=== PATIENT | female | born 1955 | race Caucasian/White ===

== ENCOUNTER → 2018-07-22 | Outpatient (CLI) | payer OTHER, MEDICARE ==
[~2018-07-22] MED LIST: FUROSEMIDE 10 MG/ML 2 ML VIAL IV ONE
--- NOTE | 2018-07-25 11:46 | NM ---
EXAMINATION TYPE: NM lasix renogram DATE OF EXAM: 07/22/2018 COMPARISON: Correlation CT 02/29/2016 HISTORY: 63-year-old female hydronephrosis with UPJ obstruction. Technique: Following administration of 9.97 mCi Tc 99m MAG3 with 20mg Lasix. Immediate images post in jection FINDINGS: Left: 47.7 %. Right: 52.3 %. Max renal flow left: 29 minutes. Max renal flow right: 52.3 minutes. Lasix was administered at 9 minutes. Max renal flow is encountered after Lasix administration. Some faint excretion is seen from the renal collecting systems. For the entire 30 minutes, the kidney s continue to show increasing uptake. Unable to define the collecting systems adequately with a region of interest due to the faint tracer cannulation. T 1/2 left: Cannot be calculated T 1/2 right: Cannot be calculated IMPRESSION: 1. Split function of the kidneys is approximately equivalent. 2. Max renal flow is encountered at or beyond 30 minutes. There is only faint accumulation in the col lecting systems. Findings suggest either dehydration, chronic kidney disease, or obstruction.
== END | disposition home or self-care (01) ==
LOC: RADNMMAIN 15:15
PROVIDERS: ATTEND Surgery
DX: N13.0 Hydronephrosis with ureteropelvic junction obstruction (principal)
CPT/HCPCS: 78708; A9562

== ENCOUNTER 2023-11-10 12:50 | Inpatient (IN) | payer MEDICARE ==
[2023-11-10] MEDS: SODIUM CHLORIDE 0.9% 500 ML 500 ML IV STA (13:51)
[2023-11-10 13:59] LABS: Basophils # (A) 0.1 k/uL (0-0.2); Basophils % (A) 1 %; Eosinophils # (A) 0.1 k/uL (0-0.7); Eosinophils % (A) 1 %; HCT 32.5 % (34.0-46.0); Hypochromasia Marked; Lymphocytes # (A) 1.1 k/uL (1.0-4.8); Lymphocytes % (A) 11 %; MCH 27.4 pg (25.0-35.0); MCHC 30.8 g/dL (31.0-37.0); MCV 88.9 fL (80.0-100.0); Mean Platelet Volume 7.7; Monocytes # (A) 0.4 k/uL (0-1.0); Monocytes % (A) 4 %; Neutrophils # (A) 7.9 k/uL (1.3-7.7); Neutrophils % (A) 82 %; Platelet Count 275 k/uL (150-450); RBC 3.66 m/uL (3.80-5.40); RDW 15.6 % (11.5-15.5); WBC 9.6 k/uL (3.8-10.6)
[2023-11-10 14:17] LABS: ALT 23 U/L (4-34); AST 33 U/L (14-36); African American GFR (CKD) 23 (>60 ml/min/1.73 sqM); Albumin 3.4 g/dL (3.5-5.0); Alkaline Phosphatase 102 U/L (38-126); Anion Gap 9 mmol/L; Blood Urea Nitrogen 40 mg/dL (7-17); Calcium 8.5 mg/dL (8.4-10.2); Carbon Dioxide 20 mmol/L (22-30); Chloride 112 mmol/L (98-107); Glucose 179 mg/dL (74-99); Magnesium 1.8 mg/dL (1.6-2.3); Non-African American GFR(CKD) 20 (>60 ml/min/1.73 sqM); Potassium 4.5 mmol/L (3.5-5.1); Sodium 141 mmol/L (137-145); Total Bilirubin 0.4 mg/dL (0.2-1.3); Total Protein 6.7 g/dL (6.3-8.2)
--- NOTE | 2023-11-10 14:19 | XR ---
EXAMINATION TYPE: XR chest 2V DATE OF EXAM: 11/10/2023 COMPARISON: NONE HISTORY: Shortness of breath TECHNIQUE: Frontal and lateral views of the chest are obtained. FINDINGS: Scattered senescent parenchymal changes noted. No evidence for infiltrate. No evidence for atelectasis. Heart size is stable. Mediastinal structures are stable and grossly unremarkable. No evidence for hilar prominence. Degenerative changes dorsal spine. IMPRESSION: 1. No evidence for acute pulmonary disease.
[2023-11-10 14:25] LABS: NT-Pro-B-Type Natriuretic Pept 2230 pg/mL
[2023-11-10 14:29] LABS: Partial Thromboplastin Time 23.9 sec (22.0-30.0); Prothrombin Time 10.5 sec (10.0-12.5)
--- NOTE | 2023-11-10 14:50 | ED ---
General Adult HPI - General Chief complaint: Syncope Stated complaint: syncope Time Seen by Provider: 11/10/23 13:10 Source: patient, RN notes reviewed, old records reviewed Mode of arrival: EMS Limitations: no limitations - History of Present Illness Initial comments: This is a 68-year-old female who presents to the emergency department with a complaint of syncope. According to the patient she has had a couple of these in the last few months. She is scheduled for aortic valve replacement. According to bystanders she passed out was leaning up against something and was unconscious he tried to feel for pulses could not feel pulse so he started CPR and after about 10 compressions she started to wake up and she came back to her baseline fairly quickly. Patient stated she never had any chest pain prior to or after the event she never had any shortness of breath or palpitations. Patient has not had any recent illness she has had no nausea vomiting diarrhea. Patient denies any fever chills or cough. Patient currently has no symptoms at all. Patient states just prior to the event she started feeling weak like she has in the past and is all she remembers. - Related Data Home Medications Medication Instructions Recorded Confirmed ALPRAZolam [Xanax] 0.5 mg PO DAILY PRN 11/10/23 11/10/23 Ciprofloxacin HCl [Cipro] 500 mg PO Q12HR 11/10/23 11/10/23 Famotidine [Pepcid] 20 mg PO DAILY PRN 11/10/23 11/10/23 Levothyroxine Sodium [Synthroid] 75 mcg PO DAILY 11/10/23 11/10/23 Metoprolol Succinate (ER) [Toprol 25 mg PO DAILY 11/10/23 11/10/23 Xl] Ondansetron [Zofran] 4 mg PO TID 11/10/23 11/10/23 Semaglutide [Ozempic] 1 mg SQ MARIEE 11/10/23 11/10/23 calcitrioL [Rocaltrol] 0.25 mcg PO DAILY 11/10/23 11/10/23 oxyCODONE-APAP 10-325MG [Percocet 1 tab PO QID 11/10/23 11/10/23 10-325 mg] Allergies Allergy/AdvReac Type Severity Reaction Status Date / Time allopurinol Allergy Rash/Hives Verified 11/10/23 14:31 minocycline Allergy Anaphylaxis Verified 11/10/23 14:31 senna Allergy Rash/Hives Verified 11/10/23 14:31 fentanyl AdvReac Hallucinati Verified 11/10/23 14:31 ons Review of Systems ROS Statement: Those systems with pertinent positive or pertinent negative responses have been documented in the HPI. ROS Other: All systems not noted in ROS Statement are negative. Past Medical History Past Medical History: Diabetes Mellitus, Hyperlipidemia Additional Past Medical History / Comment(s): kidney stones,recent uti, recent sepsis r/t kidney stone-Sep 2014 in [place], surgery for hyperparathyroid in August 2015 History of Any Multi-Drug Resistant Organisms: None Reported Past Surgical History: Appendectomy, Section, Hysterectomy Additional Past Surgical History / Comment(s): x 3,lithotripsy,pcnl, cystoscopy,ureter stent placement & removal Past Anesthesia/Blood Transfusion Reactions: Motion Sickness, Postoperative Nausea & Vomiting (PONV) Additional Past Anesthesia/Blood Transfusion Reaction / Comment(s): difficult intubation-has letter stating "recommends using fiberoptic glidoscope" Past Psychological History: No Psychological Hx Reported Past Alcohol Use History: None Reported Past Drug Use History: None Reported - Past Family History Father Additional Family Medical History / Comment(s): migraines, from a fall and brain hemorrhage at age 74 Mother Family Medical History: No Reported History Additional Family Medical History / Comment(s): mother still living at age 82 General Exam - General Exam Comments Initial Comments: GENERAL: Patient is well-developed and well-nourished. Patient is nontoxic and well- hydrated and is in no acute distress. ENT: Neck is soft and supple. No significant lymphadenopathy is noted. Oropharynx is clear. Moist mucous membranes. Neck has full range of motion without eliciting any pain. EYES: The sclera were anicteric and conjunctiva were pink and moist. Extraocular movements were intact and pupils were equal round and reactive to light. Eyelids were unremarkable. PULMONARY: Unlabored respirations. Good breath sounds bilaterally. No audible rales rhonchi or wheezing was noted. CARDIOVASCULAR: There is a regular rate and rhythm without any murmurs gallops or rubs. ABDOMEN: Soft and nontender with normal bowel sounds. SKIN: Skin is clear with no lesions or rashes and otherwise unremarkable. NEUROLOGIC: Patient is alert and oriented x3. Cranial nerves II through XII are grossly intact. Motor and sensory are also intact. Normal speech, volume and content. Symmetrical smile. MUSCULOSKELETAL: Normal extremities with adequate strength and full range of motion. No lower extremity swelling or edema. No calf tenderness. LYMPHATICS: No significant lymphadenopathy is noted PSYCHIATRIC: Normal psychiatric evaluation. Limitations: no limitations Course Vital Signs 11/10/23 11/10/23 11/10/23 12:58 13:12 14:46 Temperature 97.5 F L Pulse Rate 83 71 66 Respiratory 20 18 18 Rate Blood Pressure 106/65 103/64 122/90 O2 Sat by Pulse 100 70 L 100 Oximetry 11/10/23 15:00 Temperature Pulse Rate 69 Respiratory 120 H Rate Blood Pressure 95/53 O2 Sat by Pulse 97 Oximetry Medical Decision Making - Medical Decision Making EKG is interpreted by myself. EKG shows a sinus rhythm with occasional PAC at a rate of 76 bpm parables 166 QRS is 104 QT interval 388 QTc is 419. Patient EKG shows no ST segment ovation or depression Was pt. sent in by a medical professional or institution (, PA, CLERK MANAGER, urgent care, hospital, or [facility]...) When possible be specific @ -No Did you speak to anyone other than the patient for history (EMS, parent, family, police, friend...)? What history was obtained from this source @ -No Did you review nursing and triage notes (agree or disagree)? Why? @ -I reviewed and agree with nursing and triage notes Were old charts reviewed (outside hosp., previous admission, EMS record, old EKG, old radiological studies, urgent care reports/EKG's, [facility] records)? Report findings @ -No old charts were reviewed Differential Diagnosis (chest pain, altered mental status, abdominal pain women, abdominal pain men, vaginal bleeding, weakness, fever, dyspnea, syncope, headache, dizziness, GI bleed, back pain, seizure, CVA, palpatations, mental health, musculoskeletal)? @ -Differential Syncope: Valvular disease, hypertrophic cardiomyopathy, pulmonary embolism, tamponade, tachycardia, bradycardia, IA, hypovolemia, hemorrhage, dissection, anemia, intracranial hemorrhage, seizure, hypoglycemia, carbon monoxide poisoning, this is not meant to be an all-inclusive list EKG interpreted by me (3pts min.). @ -As above X-rays interpreted by me (1pt min.). @ -Chest x-ray shows no acute normality CT interpreted by me (1pt min.). @ -None done U/S interpreted by me (1pt. min.). @ -None done What testing was considered but not performed or refused? (CT, X-rays, U/S, labs)? Why? @ -None What meds were considered but not given or refused? Why? @ -None Did you discuss the management of the patient I spoke with Dr. Vsos and he agreed to admit the patient with other professionals (professionals i.e. , PA, CLERK MANAGER, lab, RT, psych nurse, case management social worker, heddler, teacher, protection officer, case sealer)? Give summary @ -I spoke with Dr. Voss and he agreed to admit the patient Was smoking cessation discussed for >3mins.? @ -No Was critical care preformed (if so, how long)? @ -35 minutes Were there social determinants of health that impacted care today? How? (Homelessness, low income, unemployed, alcoholism, drug addiction, transportation, low edu. Level, literacy, decrease access to med. care, care home, rehab)? @ -No Was there de-escalation of care discussed even if they declined (Discuss DNR or withdrawal of care, Hospice)? DNR status @ -No What co-morbidities impacted this encounter? (DM, HTN, Smoking, COPD, CAD, Cancer, CVA, ARF, Chemo, Hep., AIDS, mental health diagnosis, sleep apnea, morbid obesity)? @ -None Was patient admitted / discharged? Hospital course, mention meds given and route, prescriptions, significant lab abnormalities, going to OR and other pertinent info. @ -Patient had an elevated creatinine and because of his renal failure we could not do a CAT scan with IV contrast because the patient had an elevated D-dimer. Patient was started on heparin. Patient will be admitted and V/Q scan was ordered. Patient was given antibiotics for urinary tract infection as well. Undiagnosed new problem with uncertain prognosis? @ -No Drug Therapy requiring intensive monitoring for toxicity (Heparin, Nitro, Insulin, Cardizem)? @ -No Were any procedures done? @ -No Diagnosis/symptom? @ -Syncope Acute, or Chronic, or Acute on Chronic? @ -Acute Uncomplicated (without systemic symptoms) or Complicated (systemic symptoms)? @ -Complicated Side effects of treatment? @ -No Exacerbation, Progression, or Severe Exacerbation? @ -No Poses a threat to life or bodily function? How? (Chest pain, USA, IA, pneumonia, PE, COPD, DKA, ARF, appy, cholecystitis, CVA, Diverticulitis, Homicidal, Suicidal, threat to staff... and all critical care pts) @ -Yes this could have been arrhythmia or pulmonary embolism. Diagnosis/symptom? @ -Urinary tract infection Acute, or Chronic, or Acute on Chronic? @ -Acute Uncomplicated (without systemic symptoms) or Complicated (systemic symptoms)? @ -Complicated Side effects of treatment? @ -None Exacerbation, Progression, or Severe Exacerbation] @ -No Poses a threat to life or bodily function? @ -No Diagnosis/symptom? @ -Renal failure Acute, or Chronic, or Acute on Chronic? @ -Acute Uncomplicated (without systemic symptoms) or Complicated (systemic symptoms)? @ -Complicated Side effects of treatment? @ -None Exacerbation, Progression, or Severe Exacerbation] @ -No Poses a threat to life or bodily function? @ -No Diagnosis/symptom? @ -Elevated D-dimer Acute, or Chronic, or Acute on Chronic? @ -Acute Uncomplicated (without systemic symptoms) or Complicated (systemic symptoms)? @ -Complicated Side effects of treatment? @ -None Exacerbation, Progression, or Severe Exacerbation] @ -No Poses a threat to life or bodily function? @ -Yes this could be secondary to a pulmonary embolism and that is why the patient is on heparin. - Lab Data Result diagrams: 11/10/23 13:49 11/10/23 13:49 Lab Results 11/10/23 11/10/23 11/10/23 Range/Units 13:49 13:49 13:49 WBC 9.6 (3.8-10.6) k/uL RBC 3.66 L (3.80-5.40) m/uL Hgb 10.0 L (11.4-16.0) gm/dL Hct 32.5 L (34.0-46.0) % MCV 88.9 (80.0-100.0) fL MCH 27.4 (25.0-35.0) pg MCHC 30.8 L (31.0-37.0) g/dL RDW 15.6 H (11.5-15.5) % Plt Count 275 (150-450) k/uL MPV 7.7 Neutrophils % 82 % Lymphocytes % 11 % Monocytes % 4 % Eosinophils % 1 % Basophils % 1 % Neutrophils # 7.9 H (1.3-7.7) k/uL Lymphocytes # 1.1 (1.0-4.8) k/uL Monocytes # 0.4 (0-1.0) k/uL Eosinophils # 0.1 (0-0.7) k/uL Basophils # 0.1 (0-0.2) k/uL Hypochromasia Marked PT 10.5 (10.0-12.5) sec INR 1.0 (<1.2) APTT 23.9 (22.0-30.0) sec D-Dimer 5.72 H (<0.60) mg/L FEU Sodium 141 (137-145) mmol/L Potassium 4.5 (3.5-5.1) mmol/L Chloride 112 H (98-107) mmol/L Carbon Dioxide 20 L (22-30) mmol/L Anion Gap 9 mmol/L BUN 40 H (7-17) mg/dL Creatinine 2.40 H (0.52-1.04) mg/dL Est GFR (CKD-EPI)AfAm 23 (>60 ml/min/1.73 sqM) Est GFR (CKD-EPI)NonAf 20 (>60 ml/min/1.73 sqM) Glucose 179 H (74-99) mg/dL Calcium 8.5 (8.4-10.2) mg/dL Magnesium 1.8 (1.6-2.3) mg/dL Total Bilirubin 0.4 (0.2-1.3) mg/dL AST 33 (14-36) U/L ALT 23 (4-34) U/L Alkaline Phosphatase 102 (38-126) U/L Troponin I (0.000-0.034) ng/mL NT-Pro-B Natriuret Pep 2230 pg/mL Total Protein 6.7 (6.3-8.2) g/dL Albumin 3.4 L (3.5-5.0) g/dL Urine Color Urine Appearance (Clear) Urine pH (5.0-8.0) Ur Specific [place] (1.001-1.035) Urine Protein (Negative) Urine Glucose (UA) (Negative) Urine Ketones (Negative) Urine Blood (Negative) Urine Nitrite (Negative) Urine Bilirubin (Negative) Urine Urobilinogen (<2.0) mg/dL Ur Leukocyte Esterase (Negative) Urine RBC (0-5) /hpf Urine WBC (0-5) /hpf Urine WBC Clumps (None) /hpf 11/10/23 11/10/23 Range/Units 13:49 13:49 WBC (3.8-10.6) k/uL RBC (3.80-5.40) m/uL Hgb (11.4-16.0) gm/dL Hct (34.0-46.0) % MCV (80.0-100.0) fL MCH (25.0-35.0) pg MCHC (31.0-37.0) g/dL RDW (11.5-15.5) % Plt Count (150-450) k/uL MPV Neutrophils % % Lymphocytes % % Monocytes % % Eosinophils % % Basophils % % Neutrophils # (1.3-7.7) k/uL Lymphocytes # (1.0-4.8) k/uL Monocytes # (0-1.0) k/uL Eosinophils # (0-0.7) k/uL Basophils # (0-0.2) k/uL Hypochromasia PT (10.0-12.5) sec INR (<1.2) APTT (22.0-30.0) sec D-Dimer (<0.60) mg/L FEU Sodium (137-145) mmol/L Potassium (3.5-5.1) mmol/L Chloride (98-107) mmol/L Carbon Dioxide (22-30) mmol/L Anion Gap mmol/L BUN (7-17) mg/dL Creatinine (0.52-1.04) mg/dL Est GFR (CKD-EPI)AfAm (>60 ml/min/1.73 sqM) Est GFR (CKD-EPI)NonAf (>60 ml/min/1.73 sqM) Glucose (74-99) mg/dL Calcium (8.4-10.2) mg/dL Magnesium (1.6-2.3) mg/dL Total Bilirubin (0.2-1.3) mg/dL AST (14-36) U/L ALT (4-34) U/L Alkaline Phosphatase (38-126) U/L Troponin I <0.012 (0.000-0.034) ng/mL NT-Pro-B Natriuret Pep pg/mL Total Protein (6.3-8.2) g/dL Albumin (3.5-5.0) g/dL Urine Color Colorless Urine Appearance Turbid H (Clear) Urine pH 6.5 (5.0-8.0) Ur Specific [place] 1.015 (1.001-1.035) Urine Protein 1+ H (Negative) Urine Glucose (UA) Negative (Negative) Urine Ketones Negative (Negative) Urine Blood Moderate H (Negative) Urine Nitrite Negative (Negative) Urine Bilirubin Negative (Negative) Urine Urobilinogen <2.0 (<2.0) mg/dL Ur Leukocyte Esterase Large H (Negative) Urine RBC 117 H (0-5) /hpf Urine WBC >182 H (0-5) /hpf Urine WBC Clumps Many H (None) /hpf Critical Care Time Critical Care Time: Yes Total Critical Care Time: 35 Disposition Clinical Impression: Elevated d-dimer, Syncope, Urinary tract infection, Acute renal failure Disposition: ADMITTED IP TO THIS HOSP Referrals: Miriam Melgar MD [REFERRING] - 1-2 days Time of Disposition: 15:29
[2023-11-10 15:11] LABS: Appearance,Urine Turbid (Clear); Bilirubin,Urine Negative (Negative); Blood,Urine Moderate (Negative); Color,Urine Colorless; Glucose,Urine (UA) Negative (Negative); Ketones,Urine Negative (Negative); Leukocyte Esterase,Urine Large (Negative); Nitrite,Urine Negative (Negative); PH, Urine 6.5 (5.0-8.0); Protein,Urine 1+ (Negative); RBC,Urine 117 /hpf (0-5); Specific Gravity,Urine 1.015 (1.001-1.035); Urobilinogen,Urine <2.0 mg/dL (<2.0); WBC,Urine >182 /hpf (0-5)
--- NOTE | 2023-11-10 16:36 | NM ---
EXAMINATION TYPE: NM pul vent and perfuse DATE OF EXAM: 11/10/2023 CLINICAL INDICATION: Female, 68 years old with history of Elevated D-dimer, syncope; COMPARISON: 11/10/2023 TECHNIQUE: Utilizing inhalation of 37.5 mCi Tc 99m DTPA aerosol and intravenous injection of 4.15 mC i of Tc 99m MAA, ventilation and perfusion images are acquired post injection in multiple projections . FINDINGS: Normal radiotracer distribution is noted in the lungs. There is no evidence of mismatched defects. IMPRESSION: No evidence for pulmonary embolus.
[2023-11-10] MEDS: SODIUM CHLORIDE 0.9% 1,000 ML IV ONE (17:36)
[2023-11-10] MEDS: HEPARIN SODIUM 1,000 UN/ML (10ML VL) IV ONE (17:40)
[2023-11-10] MEDS: cefTRIAXone IN SWFI 1,000 MG/10 ML SYRINGE IVP STA ×2 (17:44→17:45)
[2023-11-10] MEDS: HEPARIN SOD,PORK IN 0.45% NACL 25,000 UNIT in 0.45% NACL 1 250ML.BAG IV SCH (17:47)
[2023-11-10] MEDS: PIPERACILLIN-TAZOBACTAM 3.375 GM in SODIUM CHLORIDE 0.9% 100 ML IVPB STA (19:14)
[2023-11-10] MEDS: FAMOTIDINE 20 MG TAB PO PRN (22:27)
[2023-11-10] MEDS: oxyCODONE-APAP 10-325MG 1 EACH TAB PO PRN (22:27)
[2023-11-11] MEDS: LEVOTHYROXINE 75 MCG TAB PO SCH (06:34)
[2023-11-11 08:57] LABS: African American GFR (CKD) 31 (>60 ml/min/1.73 sqM); Anion Gap 7 mmol/L; Blood Urea Nitrogen 35 mg/dL (7-17); Calcium 8.1 mg/dL (8.4-10.2); Carbon Dioxide 19 mmol/L (22-30); Chloride 114 mmol/L (98-107); Glucose 99 mg/dL (74-99); Non-African American GFR(CKD) 27 (>60 ml/min/1.73 sqM); Potassium 4.5 mmol/L (3.5-5.1); Sodium 140 mmol/L (137-145)
[2023-11-11] MEDS ORDERED: PIPERACILLIN-TAZOBACTAM 3.375 GM in SODIUM CHLORIDE 0.9% 100 ML IVPB SCH (09:00)
[2023-11-11] MEDS: METOPROLOL SUCCINATE (ER) 25 MG TAB.ER.24H PO SCH (09:53)
[2023-11-11] MEDS: ONDANSETRON 4 MG TAB PO SCH (09:56)
[2023-11-11] MEDS: PIPERACILLIN-TAZOBACTAM 3.375 GM in SODIUM CHLORIDE 0.9% 100 ML IVPB SCH (09:56)
--- NOTE | 2023-11-11 11:13 | P.NPCON ---
History of Present Illness - Reason for Consult acute renal failure, chronic renal failure - History of Present Illness Reason for consultation: Acute kidney injury on chronic kidney disease History of present illness: Patient is a 68-year-old female seen in renal consultation for acute kidney injury on chronic kidney disease. Patient has chronic kidney disease stage IIIb with baseline creatinine 1.9-2.2. Etiology is obstructive uropathy and diabetic kidney disease. Patient's creatinine on admission was 2.4 and is down to 1.85 today. Patient came to the hospital due to syncopal episode. Patient states she returned home after getting groceries and passed out while she was putting groceries away. Patient states the pulmonary at her house initiated CPR and she was brought to the hospital by the ambulance. Patient regained consciousness shortly after CPR was started. She is currently receiving IV fluids. Patient has history of nephrolithiasis and has undergone multiple interventions in the past for stone removal. Patient says she currently has bilateral ureteral stent which are exchanged every 3 to 4 months. They were last exchanged about a week ago. Patient states she has been taking Cipro for UTI. She denies gross hematuria or dysuria. No vomiting or diarrhea. Denies chest pain or shortness of breath. Patient is he does have history of diabetes but resolved after she had the gastric sleeve done. Patient states she is maintained on Ozempic per endocrinology. VQ scan was negative. She denies use of nonsteroidals. Denies family history of renal disease. Denies history of coronary artery disease. Patient does have aortic stenosis and is scheduled to undergo TAVR November 30, 2023. Vital signs are stable. General: No acute distress. HEENT: Head exam is unremarkable. LUNGS: No audible rhonchi or wheezes. HEART: Rate and Rhythm are regular. ABDOMEN: Nontender. EXTREMITITES: No edema. Past Medical History Past Medical History: Diabetes Mellitus Additional Past Medical History / Comment(s): kidney stones,recent uti, recent sepsis r/t kidney stone-Sep 2014 in [place], surgery for hyperparathyroid in August 2015, ruptured back discs, Aortic valve disease History of Any Multi-Drug Resistant Organisms: None Reported Past Surgical History: Appendectomy, Section, Hysterectomy Additional Past Surgical History / Comment(s): x 3,lithotripsy,pcnl,cystoscopy,ureter stent placement & removal, parathroidec kevin, gastric sleve Past Anesthesia/Blood Transfusion Reactions: Motion Sickness, Postoperative Nausea & Vomiting (PONV) Additional Past Anesthesia/Blood Transfusion Reaction / Comment(s): difficult intubation-has letter stating "recommends using fiberoptic glidoscope". Gets zofran and preventative Past Psychological History: No Psychological Hx Reported Smoking Status: Never smoker Past Alcohol Use History: None Reported Additional Past Alcohol Use History / Comment(s): smoked short time as a teenager Past Drug Use History: None Reported - Past Family History Father Additional Family Medical History / Comment(s): migraines, from a fall and brain hemorrhage at age 74 Mother Family Medical History: No Reported History Additional Family Medical History / Comment(s): mother still living at age 82 Medications and Allergies Home Medications Medication Instructions Recorded Confirmed Type ALPRAZolam [Xanax] 0.5 mg PO DAILY PRN 11/10/23 11/10/23 History Ciprofloxacin HCl [Cipro] 500 mg PO Q12HR 11/10/23 11/10/23 History Famotidine [Pepcid] 20 mg PO DAILY PRN 11/10/23 11/10/23 History Levothyroxine Sodium [Synthroid] 75 mcg PO DAILY 11/10/23 11/10/23 History Metoprolol Succinate (ER) [Toprol 25 mg PO DAILY 11/10/23 11/10/23 History Xl] Ondansetron [Zofran] 4 mg PO TID 11/10/23 11/10/23 History Semaglutide [Ozempic] 1 mg SQ MARIEE 11/10/23 11/10/23 History calcitrioL [Rocaltrol] 0.25 mcg PO DAILY 11/10/23 11/10/23 History oxyCODONE-APAP 10-325MG [Percocet 1 tab PO QID PRN 11/10/23 11/10/23 History 10-325 mg] Allergies Allergy/AdvReac Type Severity Reaction Status Date / Time allopurinol Allergy Rash/Hives Verified 11/10/23 14:31 cephalexin [From Keflex] Allergy Rash/Hives Verified 11/10/23 17:35 minocycline Allergy Anaphylaxis Verified 11/10/23 14:31 senna Allergy Rash/Hives Verified 11/10/23 14:31 fentanyl AdvReac Hallucinati Verified 11/10/23 14:31 ons Physical Exam Vitals: Vital Signs Temp Pulse Pulse Pulse Resp BP BP 11/11/23 08:00 98.4 F 81 18 11/11/23 03:41 73 18 11/11/23 00:00 72 18 11/10/23 20:28 98.3 F 73 18 11/10/23 19:31 98.1 F 69 16 118/74 11/10/23 19:00 85 18 149/93 11/10/23 17:50 69 22 117/70 11/10/23 17:24 67 120/77 11/10/23 15:00 69 20 95/53 11/10/23 14:46 66 18 122/90 11/10/23 13:12 71 18 103/64 11/10/23 12:58 97.5 F L 83 20 106/65 BP BP BP Pulse Ox 11/11/23 08:00 107/66 97 11/11/23 03:41 109/60 97 11/11/23 00:00 102/62 97 11/10/23 20:28 127/71 98 11/10/23 19:31 99 11/10/23 19:00 99 11/10/23 17:50 98 11/10/23 17:24 114/68 113/74 11/10/23 15:00 97 11/10/23 14:46 100 11/10/23 13:12 97 11/10/23 12:58 100 Intake and Output 11/10/23 11/11/23 11/11/23 22:59 06:59 14:59 Intake Total 10 490 Balance 10 490 Intake: IV 10 10 Invasive Line 2 10 10 Oral 480 Other: Voiding Method Toilet Toilet # Voids 1 Weight 84.368 kg Results - Lab Results Most recent lab results Calcium 8.1 mg/dL (8.4-10.2) L 11/11/23 06:47 Magnesium 2.0 mg/dL (1.6-2.3) 11/11/23 06:47 11/10/23 13:49 11/11/23 06:47 Assessment and Plan Plan: Assessment: 1. Acute kidney injury secondary to vasomotor nephropathy from hemodynamic instability. Creatinine 2.4 admission and is 1.85 today. 2. Chronic kidney disease stage IIIb with baseline creatinine 1.9-2.2 secondary to obstructive uropathy and diabetic kidney disease. 3. Hydronephrosis with bilateral ureteral stents which are exchanged every 3 to 4 months. Follows with urology out of [facility], Dr. Gonzalez. 4. Metabolic acidosis secondary to acute kidney injury and IV fluids. 5. Syncopal episode. 6. Aortic stenosis. 7. Chronic kidney disease mineral bone disease maintained on calcitriol. 8. UTI on antibiotics. Plan: Hep-Lock IV fluids. Encouraged oral intake. Avoid nephrotoxins. Follow-up echocardiogram. Check renal ultrasound. Thank you for the consultation. I will continue to follow the patient with you during her hospital stay.
[2023-11-11] MEDS: ALPRAZolam 0.5 MG TAB PO PRN (11:31)
--- NOTE | 2023-11-11 11:31 | CA ---
Transthoracic Echo Report Name: Sallie Flynn Age: 68 Gender: F : 1955 Exam Date: 11/10/2023 18:01 Exam Location: [facility] Ht (in): 62 Wt (lb): 186 Ordering Physician: Tavon Levy MD Attending/Referring Phys: Motorcycle Repairer ML Procedure CPT: Indications: Syncope Cardiac Hx: Technical Quality: Contrast 1: Total Dose (mL): Contrast 2: Total Dose (mL): MEASUREMENTS (Male / Female) Normal Values 2D ECHO LV Diastolic Diameter PLAX 4.7 cm 4.2 - 5.9 / 3.9 - 5.3 cm LV Systolic Diameter PLAX 3.6 cm IVS Diastolic Thickness 0.7 cm 0.6 - 1.0 / 0.6 - 0.9 cm LVPW Diastolic Thickness 1.0 cm 0.6 - 1.0 / 0.6 - 0.9 cm LV Relative Wall Thickness 0.4 LVOT Diameter 2.0 cm Aortic Root Diameter 3.4 cm LA Systolic Diameter LX 3.1 cm 3.0 - 4.0 / 2.7 - 3.8 cm DOPPLER AV Peak Velocity 433.5 cm/s AV Peak Gradient 75.2 mmHg AV Mean Velocity 350.5 cm/s AV Mean Gradient 52.5 mmHg AV Velocity Time Integral 106.5 cm LVOT Peak Velocity 81.3 cm/s LVOT Peak Gradient 2.6 mmHg LVOT Velocity Time Integral 29.2 cm LVOT Stroke Volume 87.9 cm??? LVOT Stroke Volume Index 47.4 ml/m??? LVOT Cardiac Index 3052.7 cm???/min???m??? AV Area Cont Eq vti 0.8 cm??? AV Area Cont Eq pk 0.6 cm??? MV Area PHT 3.7 cm??? Mitral E Point Velocity 115.9 cm/s Mitral A Point Velocity 112.9 cm/s Mitral E to A Ratio 1.0 MV Deceleration Time 206.9 ms PV Peak Velocity 84.0 cm/s PV Peak Gradient 2.8 mmHg FINDINGS Left Ventricle Left ventricular ejection fraction is estimated at 55 %.borderline left ventricular hypertrophy. Grade 2 diastolic dysfunction. Right Ventricle Normal right ventricular size. Right Atrium Normal right atrial size. Left Atrium Normal left atrial size. Mitral Valve [id number] mitral regurgitation. Mild mitral annular calcification. Aortic Valve Severe aortic stenosis with a peak gradient of 64 mmHg and a mean gradient of 40 mmHg. Tricuspid Valve Trace tricuspid regurgitation. Pulmonic Valve No pulmonic regurgitation. Pericardium No pericardial effusion. Aorta Aortic dilatation measuring up to 4.0cm CONCLUSIONS Normal LV size and systolic function with mild to moderate concentric LVH. Aortic valve is heavily calcified with the severe stenosis and a mean gradient of nearly 40 mmHg. Mild to moderate mitral regurgitation with mitral annular calcification. Mild tricuspid regurgitation. No pericardial effusion Previewed by: Dr. Susan Sommer MD (Electronically Signed) Final Date: 11 November 2023 11:30
--- NOTE | 2023-11-11 12:34 | P.CRDCN ---
History of Present Illness Consult date: 11/11/23 Consult reason: sycope History of present illness: History of present illness: This is a 68-year-old female previously seen in the office by Dr. Jl Soto now established with a tail worker at [facility] with past medical history of aortic stenosis scheduled for TAVR on 11/29. She also has a past medical history of diabetes, kidney stones with frequent urinary tract infections and stenting follows with a specialist at [facility], hypothyroidism. We have been asked to evaluate the patient for syncope. Patient states that she was carrying groceries and and she had a syncopal episode the next thing she remembers she woke up in the ambulance. There was someone working at the house and found her. She has had 1 previous episode of syncope about a month ago. She states that she had recently started taking half of her Toprol pill and then was not feeling well so she increased it back to the full strength 2 days ago and was concerned that this may have contributed to the syncopal episode. Patient has been started on a heparin drip with concern for pulmonary embolism due to elevated D- dimer. Dr. Chandler discussed that patient is at high risk for due to the aortic stenosis and would recommend having TAVR sooner than is scheduled at the end of the month. He also recommended the patient complete treatment for urinary tract infection so that the UTI does not interfere with the scheduling of her TAVR. EKG sinus rhythm with occasional PACs Chest x-ray: No acute process Echocardiogram performed 11/11/2023 reveals normal LV size and systolic function with mild to moderate concentric LVH. Aortic valve is heavily calcified with severe stenosis and a mean gradient of nearly 40 mmHg. Mild to moderate mitral regurgitation and mitral annular calcification. Mild tricuspid regurgitation. No pericardial effusion. VQ scan reveals no evidence of pulmonary embolus. WBC 9.6, hemoglobin 10, platelet count 275. INR 1. D-dimer 5.72. Sodium 140, potassium 4.5, CO2 19, BUN 35 creatinine 1.85. Patient presented with c reatinine of 2.4. Troponins negative x 3. proBNP 2230. Urinalysis leukoesterase large, RBCs 117, WBCs greater than 182, WBC clumps many. Home cardiac medications: Toprol XL 25 mg daily. Review Of Systems: At the time of my exam: CONSTITUTIONAL: Denies fever or chills. HEENT: Denies blurred vision, vision changes, or eye pain. Denies hemoptysis CARDIOVASCULAR: Denies chest pain. Denies orthopnea. Denies PND. Denies palpitations RESPIRATORY: Denies shortness of breath. GASTROINTESTINAL: Denies abdominal pain. Denies nausea or vomiting. HEMATOLOGIC: Denies bleeding disorders. GENITOURINARY: Denies any blood in urine. SKIN: Denies pruitis. Denies rash. Physical examination: Gen: This is a 68-year-old female in no acute distress VS: reviewed blood pressure 107/66, heart rate 81, pulse ox 97% on room air. HEENT: Head normocephalic. Ecchymosis right face. Pupils equal, round. Sclerae is anicteric. NECK: Supple. No JVD. LUNGS: Clear to auscultation. No wheezes or rhonchi. No intercostal retractions. HEART: Regular rate and rhythm. 4/6 systolic ejection murmur in the aortic are a. ABDOMEN: Soft No tenderness. EXTREMITIES: No pedal edema. No calf tenderness. NEUROLOGICAL: Patient is awake, alert and oriented x3. Assessment: Syncope secondary to aortic stenosis Acute kidney injury Metabolic acidosis Urinary tract infection Severe aortic stenosis Plan: Resume patient's home cardiac medications Discontinue heparin drip No driving Patient may take half dose of her Toprol-XL 25 mg but if blood pressure is low, do not take Further recommendations to follow based upon clinical course Thank you kindly for this consultation. Nurse practitioner note has been reviewed, I agree with documented findings and plan of care. Patient was seen and examined. Past Medical History Past Medical History: Diabetes Mellitus Additional Past Medical History / Comment(s): kidney stones,recent uti, recent sepsis r/t kidney stone-Sep 2014 in [place], surgery for hyperparathyroid in August 2015, ruptured back discs, Aortic valve disease History of Any Multi-Drug Resistant Organisms: None Reported Past Surgical History: Appendectomy, Section, Hysterectomy Additional Past Surgical History / Comment(s): x 3,lithotripsy,pcn l,cystoscopy,ureter stent placement & removal, parathroidectomy, gastric sleve Past Anesthesia/Blood Transfusion Reactions: Motion Sickness, Postoperative Nausea & Vomiting (PONV) Additional Past Anesthesia/Blood Transfusion Reaction / Comment(s): difficult intubation-has letter stating "recommends using fiberoptic glidoscope". Gets zofran and preventative Past Psychological History: No Psychological Hx Reported Smoking Status: Never smoker Past Alcohol Use History: None Reported Additional Past Alcohol Use History / Comment(s): smoked short time as a teenager Past Drug Use History: None Reported - Past Family History Father Additional Family Medical History / Comment(s): migraines, from a fall and brain hemorrhage at age 74 Mother Family Medical History: No Reported History Additional Family Medical History / Comment(s): mother still living at age 82 Medications and Allergies Home Medications Medication Instructions Recorded Confirmed Type ALPRAZolam [Xanax] 0.5 mg PO DAILY PRN 11/10/23 11/10/23 History Ciprofloxacin HCl [Cipro] 500 mg PO Q12HR 11/10/23 11/10/23 History Famotidine [Pepcid] 20 mg PO DAILY PRN 11/10/23 11/10/23 History Levothyroxine Sodium [Synthroid] 75 mcg PO DAILY 11/10/23 11/10/23 History Metoprolol Succinate (ER) [Toprol 25 mg PO DAILY 11/10/23 11/10/23 History Xl] Ondansetron [Zofran] 4 mg PO TID 11/10/23 11/10/23 History Semaglutide [Ozempic] 1 mg SQ MARIEE 11/10/23 11/10/23 History calcitrioL [Rocaltrol] 0.25 mcg PO DAILY 11/10/23 11/10/23 History oxyCODONE-APAP 10-325MG [Percocet 1 tab PO QID PRN 11/10/23 11/10/23 History 10-325 mg] Allergies Allergy/AdvReac Type Severity Reaction Status Date / Time allopurinol Allergy Rash/Hives Verified 11/10/23 14:31 cephalexin [From Keflex] Allergy Rash/Hives Verified 11/10/23 17:35 minocycline Allergy Anaphylaxis Verified 11/10/23 14:31 senna Allergy Rash/Hives Verified 11/10/23 14:31 fentanyl AdvReac Hallucinati Verified 11/10/23 14:31 ons Physical Exam Vitals: Vital Signs Temp Pulse Pulse Pulse Resp BP BP 11/11/23 03:41 73 18 11/11/23 00:00 72 18 11/10/23 20:28 98.3 F 73 18 11/10/23 19:31 98.1 F 69 16 118/74 11/10/23 19:00 85 18 149/93 11/10/23 17:50 69 22 117/70 11/10/23 17:24 67 120/77 11/10/23 15:00 69 20 95/53 11/10/23 14:46 66 18 122/90 11/10/23 13:12 71 18 103/64 11/10/23 12:58 97.5 F L 83 20 106/65 BP BP BP Pulse Ox 11/11/23 03:41 109/60 97 11/11/23 00:00 102/62 97 11/10/23 20:28 127/71 98 11/10/23 19:31 99 11/10/23 19:00 99 11/10/23 17:50 98 11/10/23 17:24 114/68 113/74 11/10/23 15:00 97 11/10/23 14:46 100 11/10/23 13:12 97 11/10/23 12:58 100 Intake and Output 11/10/23 11/11/23 11/11/23 22:59 06:59 14:59 Intake Total 10 Balance 10 Intake: IV 10 Invasive Line 2 10 Other: Voiding Method Toilet Toilet # Voids 1 Weight 84.368 kg Results 11/10/23 13:49 11/11/23 06:47 Cardiac Enzymes 11/10/23 11/10/23 11/10/23 Range/Units 13:49 13:49 17:18 AST 33 (14-36) U/L Troponin I <0.012 0.012 (0.000-0.034) ng/mL 11/10/23 Range/Units 21:00 AST (14-36) U/L Troponin I 0.013 (0.000-0.034) ng/mL Coagulation 11/10/23 11/10/23 11/11/23 Range/Units 00:00 13:49 06:43 PT 10.5 (10.0-12.5) sec APTT 68.1 H 23.9 47.8 H (22.0-30.0) sec CBC 11/10/23 Range/Units 13:49 WBC 9.6 (3.8-10.6) k/uL RBC 3.66 L (3.80-5.40) m/uL Hgb 10.0 L (11.4-16.0) gm/dL Hct 32.5 L (34.0-46.0) % Plt Count 275 (150-450) k/uL Comprehensive Metabolic Panel 11/10/23 11/11/23 Range/Units 13:49 06:47 Sodium 141 140 (137-145) mmol/L Potassium 4.5 4.5 (3.5-5.1) mmol/L Chloride 112 H 114 H (98-107) mmol/L Carbon Dioxide 20 L 19 L (22-30) mmol/L BUN 40 H 35 H (7-17) mg/dL Creatinine 2.40 H 1.85 H (0.52-1.04) mg/dL Glucose 179 H 99 (74-99) mg/dL Calcium 8.5 8.1 L (8.4-10.2) mg/dL AST 33 (14-36) U/L ALT 23 (4-34) U/L Alkaline Phosphatase 102 (38-126) U/L Total Protein 6.7 (6.3-8.2) g/dL Albumin 3.4 L (3.5-5.0) g/dL Current Medications Generic Name Dose Route Start Last Admin Trade Name Freq PRN Reason Stop Dose Admin Alprazolam 0.5 mg 11/10/23 22:10 Alprazolam 0.5 Mg Tab PO DAILY PRN Anxiety Calcitriol 0.25 mcg 11/11/23 09:00 Calcitriol 0.25 Mcg Cap PO DAILY [facility] Famotidine 20 mg 11/10/23 22:10 11/10/23 22:27 Famotidine 20 Mg Tab PO 20 mg DAILY PRN Administration GI Upset Heparin Sodium/Sodium Chloride 250 mls @ 15.186 mls/hr 11/10/23 15:15 11/10/23 17:47 25,000 unit/ Sodium Chloride IV 18 units/kg/hr .[id number] EVELIN 15.186 mls/hr Administration Protocol 18 UNITS/KG/HR Piperacillin Sod/Tazobactam 100 mls @ 25 mls/hr 11/11/23 10:00 Sod 3.375 gm/ Sodium Chloride IVPB Q8H [facility] Protocol Levothyroxine Sodium 75 mcg 11/11/23 06:30 11/11/23 06:34 Levothyroxine 75 Mcg Tab PO 75 mcg DAILY@0630 [facility] Administration Metoprolol Succinate 25 mg 11/11/23 09:00 Metoprolol Succinate (Er) 25 Mg Tab.Er.24h PO DAILY [facility] Non-Formulary Medication 1 mg 11/14/23 09:00 Semaglutide [Ozempic] SQ MARIEE [facility] Ondansetron HCl 4 mg 11/11/23 09:00 Ondansetron 4 Mg Tab PO TID [facility] Oxycodone/Acetaminophen 1 each 11/10/23 22:10 11/10/23 22:27 Oxycodone-Apap 10-325mg 1 Each Tab PO 1 each QID PRN Administration Pain Intake and Output 11/10/23 11/11/23 11/11/23 22:59 06:59 14:59 Intake Total 10 Balance 10 Intake: IV 10 Invasive Line 2 10 Other: Voiding Method Toilet Toilet # Voids 1 Weight 84.368 kg 11/10/23 13:49 11/11/23 06:47
--- NOTE | 2023-11-11 12:34 | US ---
EXAMINATION TYPE: US kidneys/renal and bladder DATE OF EXAM: 11/11/2023 COMPARISON: CT, US 2015 CLINICAL INDICATION: Female, 68 years old with history of dash; DASH, patient states she has bilateral ureteral stents. Hx kidney stones. Patient has hx of medullary sponge kidney. EXAM MEASUREMENTS: Right Kidney: 16.3 x 7.2 x 8.0 cm Left Kidney: 17.7 x 6.4 x 9.1 cm Right Kidney: Enlarged. *Hydronephrosis seen. *Multiple anechoic areas seen. *Septated anechoic area seen lower: 4.4 x 4.4 x 2.7 cm. -Hyperechoic focus seen lower: 0.5 x 0.6 x 0.3 cm. Left Kidney: Enlarged. *Hydronephrosis seen. Bladder: Hyperechoic areas seen within the bladder appear to be ureteral stents Bilateral Jets seen: No IMPRESSION: Severe bilateral hydronephrosis. Nonobstructing calculus right kidney. Septated cyst right kidney. Ur eteral stents.
--- NOTE | 2023-11-11 17:28 | P.HPIM ---
History of Present Illness H&P Date: 11/11/23 Sallie Flynn, is a 68-year-old female who presented to [facility] emergency room after having an episode of syncope. patient has a known history of aortic stenosis and is followed by a study director at [facility], she was evaluated in the emergency room. Vital examination on presentation revealed a temperature of 97.5 pulse 83 respiration 20 blood pressure 106/65 pulse ox 100% on room air. laboratory data revealed a white blood count of 9.6 hemoglobin 10.2 platelet count 275 d-dimer 5.72 BUN 40 creatinine 2.4 urinalysis revealed evidence of urinary tract infection Patient was admitted to telemetry floor, she was started on IV heparin, cardiology and nephrology consultation were requested, echocardiogram was ordered Past Medical History Past Medical History: Diabetes Mellitus Additional Past Medical History / Comment(s): kidney stones,recent uti, recent sepsis r/t kidney stone-Sep 2014 in [place], surgery for hyperparathyroid in August 2015, ruptured back discs, Aortic valve disease History of Any Multi-Drug Resistant Organisms: None Reported Past Surgical History: Appendectomy, Section, Hysterectomy Additional Past Surgical History / Comment(s): x 3,lithotripsy,pcnl,cystoscopy,ureter stent placement & removal, parathroidectomy, gastric sleve Past Anesthesia/Blood Transfusion Reactions: Motion Sickness, Postoperative Nausea & Vomiting (PONV) Additional Past Anesthesia/Blood Transfusion Reaction / Comment(s): difficult intubation-has letter stating "recommends using fiberoptic glidoscope". Gets zofran and preventative Past Psychological History: No Psychological Hx Reported Smoking Status: Never smoker Past Alcohol Use History: None Reported Additional Past Alcohol Use History / Comment(s): smoked short time as a teenager Past Drug Use History: None Reported - Past Family History Father Additional Family Medical History / Comment(s): migraines, from a fall and brain hemorrhage at age 74 Mother Family Medical History: No Reported History Additional Family Medical History / Comment(s): mother still living at age 82 Medications and Allergies Home Medications Medication Instructions Recorded Confirmed Type ALPRAZolam [Xanax] 0.5 mg PO DAILY PRN 11/10/23 11/10/23 History Ciprofloxacin HCl [Cipro] 500 mg PO Q12HR 11/10/23 11/10/23 History Famotidine [Pepcid] 20 mg PO DAILY PRN 11/10/23 11/10/23 History Levothyroxine Sodium [Synthroid] 75 mcg PO DAILY 11/10/23 11/10/23 History Metoprolol Succinate (ER) [Toprol 25 mg PO DAILY 11/10/23 11/10/23 History Xl] Ondansetron [Zofran] 4 mg PO TID 11/10/23 11/10/23 History Semaglutide [Ozempic] 1 mg SQ MARIEE 11/10/23 11/10/23 History calcitrioL [Rocaltrol] 0.25 mcg PO DAILY 11/10/23 11/10/23 History oxyCODONE-APAP 10-325MG [Percocet 1 tab PO QID PRN 11/10/23 11/10/23 History 10-325 mg] Allergies Allergy/AdvReac Type Severity Reaction Status Date / Time allopurinol Allergy Rash/Hives Verified 11/10/23 14:31 cephalexin [From Keflex] Allergy Rash/Hives Verified 11/10/23 17:35 minocycline Allergy Anaphylaxis Verified 11/10/23 14:31 senna Allergy Rash/Hives Verified 11/10/23 14:31 fentanyl AdvReac Hallucinati Verified 11/10/23 14:31 ons Physical Exam Vitals: Vital Signs Temp Pulse Pulse Pulse Resp BP BP 11/11/23 03:41 73 18 11/11/23 00:00 72 18 11/10/23 20:28 98.3 F 73 18 11/10/23 19:31 98.1 F 69 16 118/74 11/10/23 19:00 85 18 149/93 11/10/23 17:50 69 22 117/70 11/10/23 17:24 67 120/77 11/10/23 15:00 69 20 95/53 11/10/23 14:46 66 18 122/90 11/10/23 13:12 71 18 103/64 11/10/23 12:58 97.5 F L 83 20 106/65 BP BP BP Pulse Ox 11/11/23 03:41 109/60 97 11/11/23 00:00 102/62 97 11/10/23 20:28 127/71 98 11/10/23 19:31 99 11/10/23 19:00 99 04/10/24 17:50 98 11/10/23 17:24 114/68 113/74 11/10/23 15:00 97 11/10/23 14:46 100 11/10/23 13:12 97 11/10/23 12:58 100 Intake and Output 11/10/23 11/11/23 11/11/23 22:59 06:59 14:59 Intake Total 10 Balance 10 Intake: IV 10 Invasive Line 2 10 Other: Voiding Method Toilet Toilet # Voids 1 Weight 84.368 kg In general patient is alert and oriented ?-3 in no distress HEENT head normocephalic and atraumatic Neck is supple no JVD no goiter no lymphadenopathy no carotid bruit Chest examination is clear to auscultation no crackles no wheezing Cardiac exam reveals regular heart sounds S1 and S2 no gallops, with 3/6 systolic murmur in the right sternal border Abdomen is soft nontender no organomegaly with normal bowel sounds, there is suprapubic pain and tenderness Extremity exam reveals no edema no cyanosis or clubbing Neurological examination reveals no gross focal deficits Results CBC & Chem 7: 11/10/23 13:49 11/11/23 06:47 Labs: Abnormal Lab Results - Last 24 Hours (Table) 11/10/23 11/10/23 11/10/23 Range/Units 00:00 13:49 13:49 RBC 3.66 L (3.80-5.40) m/uL Hgb 10.0 L (11.4-16.0) gm/dL Hct 32.5 L (34.0-46.0) % MCHC 30.8 L (31.0-37.0) g/dL RDW 15.6 H (11.5-15.5) % Neutrophils # 7.9 H (1.3-7.7) k/uL APTT 68.1 H (22.0-30.0) sec D-Dimer 5.72 H (<0.60) mg/L FEU Chloride (98-107) mmol/L Carbon Dioxide (22-30) mmol/L BUN (7-17) mg/dL Creatinine (0.52-1.04) mg/dL Glucose (74-99) mg/dL Calcium (8.4-10.2) mg/dL Albumin (3.5-5.0) g/dL Urine Appearance (Clear) Urine Protein (Negative) Urine Blood (Negative) Ur Leukocyte Esterase (Negative) Urine RBC (0-5) /hpf Urine WBC (0-5) /hpf Urine WBC Clumps (None) /hpf 11/10/23 11/10/23 11/11/23 Range/Units 13:49 13:49 06:43 RBC (3.80-5.40) m/uL Hgb (11.4-16.0) gm/dL Hct (34.0-46.0) % MCHC (31.0-37.0) g/dL RDW (11.5-15.5) % Neutrophils # (1.3-7.7) k/uL APTT 47.8 H (22.0-30.0) sec D-Dimer (<0.60) mg/L FEU Chloride 112 H (98-107) mmol/L Carbon Dioxide 20 L (22-30) mmol/L BUN 40 H (7-17) mg/dL Creatinine 2.40 H (0.52-1.04) mg/dL Glucose 179 H (74-99) mg/dL Calcium (8.4-10.2) mg/dL Albumin 3.4 L (3.5-5.0) g/dL Urine Appearance Turbid H (Clear) Urine Protein 1+ H (Negative) Urine Blood Moderate H (Negative) Ur Leukocyte Esterase Large H (Negative) Urine RBC 117 H (0-5) /hpf Urine WBC >182 H (0-5) /hpf Urine WBC Clumps Many H (None) /hpf 11/11/23 Range/Units 06:47 RBC (3.80-5.40) m/uL Hgb (11.4-16.0) gm/dL Hct (34.0-46.0) % MCHC (31.0-37.0) g/dL RDW (11.5-15.5) % Neutrophils # (1.3-7.7) k/uL APTT (22.0-30.0) sec D-Dimer (<0.60) mg/L FEU Chloride 114 H (98-107) mmol/L Carbon Dioxide 19 L (22-30) mmol/L BUN 35 H (7-17) mg/dL Creatinine 1.85 H (0.52-1.04) mg/dL Glucose (74-99) mg/dL Calcium 8.1 L (8.4-10.2) mg/dL Albumin (3.5-5.0) g/dL Urine Appearance (Clear) Urine Protein (Negative) Urine Blood (Negative) Ur Leukocyte Esterase (Negative) Urine RBC (0-5) /hpf Urine WBC (0-5) /hpf Urine WBC Clumps (None) /hpf Thrombosis Risk Factor Assmnt - Choose All That Apply Any of the Below Risk Factors Present?: No Each Risk Factor Represents 2 Points: Age 61-74 years Thrombosis Risk Factor Assessment Total Risk Factor Score: 2 Thrombosis Risk Factor Assessment Level: Low Risk Assessment and Plan Plan: episode of syncope Underlying history of valvular heart disease with aortic stenosis elevated d-dimer Symptomatic urinary tract infection, with suprapubic pain and tenderness Acute kidney injury Metabolic acidosis underlying history of kidney stones History of degenerative disc disease with herniated disc At this time patient is admitted to telemetry floor VQ scan was ordered, due to elevated d-dimer patient was started on IV heparin Cardiology and nephrology consult requested Will follow closely
[2023-11-12 07:46] LABS: African American GFR (CKD) 27 (>60 ml/min/1.73 sqM); Anion Gap 9 mmol/L; Blood Urea Nitrogen 34 mg/dL (7-17); Calcium 8.8 mg/dL (8.4-10.2); Carbon Dioxide 20 mmol/L (22-30); Chloride 112 mmol/L (98-107); Glucose 96 mg/dL (74-99); Non-African American GFR(CKD) 24 (>60 ml/min/1.73 sqM); Potassium 4.7 mmol/L (3.5-5.1); Sodium 141 mmol/L (137-145)
[2023-11-12] MEDS: METOPROLOL SUCCINATE (ER) 25 MG TAB.ER.24H PO SCH (08:38)
--- NOTE | 2023-11-12 09:03 | P.PN ---
Subjective Progress Note Date: 11/12/23 Sallie Flynn, is a 68-year-old female who presented to [facility] emergency room after having an episode of syncope. patient has a known history of aortic stenosis and is followed by a network relay tester at [facility], she was evaluated in the emergency room. Vital examination on presentation revealed a temperature of 97.5 pulse 83 respiration 20 blood pressure 106/65 pulse ox 100% on room air. laboratory data revealed a white blood count of 9.6 hemoglobin 10.2 platelet count 275 d-dimer 5.72 BUN 40 creatinine 2.4 urinalysis revealed evidence of urinary tract infection Patient was admitted to telemetry floor, she was started on IV heparin, cardiology and nephrology consultation were requested, echocardiogram was ordered on 11/12/2023 patient is alert and oriented 3. IV heparin has been DC'd per cardiology patient remains on IV Zosyn. Creatinine increasing to2.09 bun 34. Nephrology services are following. Vital signs temp 98.1, heart rate 78, respiratory rate 14, blood pressure 103/65 with pulse ox 98% on room air Dr. Parry group will be covering for 11/13/2023 to 11/14/2023 Objective - Vital Signs Vital signs: Vital Signs Temp 98.1 F 11/12/23 07:28 Pulse 78 11/12/23 07:28 Resp 14 11/12/23 07:28 BP 103/65 11/12/23 07:28 Pulse Ox 98 11/12/23 07:28 FiO2 Intake & Output 11/11/23 11/12/23 11/12/23 18:59 06:59 18:59 Intake Total 962 780 240 Balance 962 780 240 Intake: IV 20 Invasive Line 2 20 Oral 942 780 240 Other: Voiding Method Toilet Toilet # Voids 1 2 - Exam In general patient is alert and oriented ?-3 in no distress HEENT head normocephalic and atraumatic Neck is supple no JVD no goiter no lymphadenopathy no carotid bruit Chest examination is clear to auscultation no crackles no wheezing Cardiac exam reveals regular heart sounds S1 and S2 no gallops, with 3/6 systo lic murmur in the right sternal border Abdomen is soft nontender no organomegaly with normal bowel sounds, there is suprapubic pain and tenderness Extremity exam reveals no edema no cyanosis or clubbing Neurological examination reveals no gross focal deficits - Labs CBC & Chem 7: 11/10/23 13:49 11/12/23 06:30 Labs: Abnormal Lab Results - Last 24 Hours (Table) 11/12/23 Range/Units 06:30 Chloride 112 H (98-107) mmol/L Carbon Dioxide 20 L (22-30) mmol/L BUN 34 H (7-17) mg/dL Creatinine 2.09 H (0.52-1.04) mg/dL Microbiology - Last 24 Hours (Table) 11/10/23 16:45 Blood Culture - Preliminary Blood 11/10/23 17:00 Blood Culture - Preliminary Blood Assessment and Plan Plan: episode of syncope Underlying history of valvular heart disease with aortic stenosis elevated d-dimer Symptomatic urinary tract infection, with suprapubic pain and tenderness Acute kidney injury Metabolic acidosis underlying history of kidney stones History of degenerative disc disease with herniated disc At this time patient is admitted to telemetry floor VQ scan was ordered, due to elevated d-dimer. VQ scan negative patient remains on IV Zosyn Cardiology and nephrology consult requested Will follow closely
--- NOTE | 2023-11-12 11:01 | P.PN ---
Subjective Patient is seen in follow-up for acute kidney injury on chronic kidney disease. Renal function slightly worse but near baseline. Denies chest pain or shortness of breath. Has been voiding. Vital signs are stable. General: No acute distress. HEENT: Head exam is unremarkable. LUNGS: No audible rhonchi or wheezes. HEART: Rate and Rhythm are regular. ABDOMEN: Nontender. EXTREMITITES: No edema. Objective - Vital Signs Vital signs: Vital Signs Temp 98.1 F 11/12/23 07:28 Pulse 78 11/12/23 07:28 Resp 14 11/12/23 07:28 BP 103/65 11/12/23 07:28 Pulse Ox 98 11/12/23 07:28 FiO2 Intake & Output 11/11/23 11/12/23 11/12/23 18:59 06:59 18:59 Intake Total 962 780 240 Balance 962 780 240 Intake: IV 20 Invasive Line 2 20 Oral 942 780 240 Other: Voiding Method Toilet Toilet # Voids 1 2 - Labs CBC & Chem 7: 11/10/23 13:49 11/12/23 06:30 Labs: Abnormal Lab Results - Last 24 Hours (Table) 11/12/23 Range/Units 06:30 Chloride 112 H (98-107) mmol/L Carbon Dioxide 20 L (22-30) mmol/L BUN 34 H (7-17) mg/dL Creatinine 2.09 H (0.52-1.04) mg/dL Microbiology - Last 24 Hours (Table) 11/10/23 16:45 Blood Culture - Preliminary Blood 11/10/23 17:00 Blood Culture - Preliminary Blood Assessment and Plan Plan: Assessment: 1. Acute kidney injury secondary to vasomotor nephropathy from hemodynamic instability. Creatinine 2.4 admission and is 2.09 today. Bilateral hydronephrosis noted on kidney ultrasound. 2. Chronic kidney disease stage IIIb with baseline creatinine 1.9-2.2 secondary to obstructive uropathy and diabetic kidney disease. 3. Hydronephrosis with bilateral ureteral stents which are exchanged every 3 to 4 months. Follows with urology out of [facility], Dr. Gonzalez. 4. Metabolic acidosis secondary to acute kidney injury and IV fluids. 5. Syncopal episode. 6. Aortic stenosis. Mild to moderate mitral regurgitation also noted on echocardiogram. EF 55%. Scheduled for TAVR next week. 7. Chronic kidney disease mineral bone disease maintained on calcitriol. 8. UTI on antibiotics. 9. Metabolic acidosis secondary to chronic kidney disease and IV fluids. Plan: Remains off IV fluids. Encouraged oral intake. Avoid nephrotoxins. Add oral bicarb.
--- NOTE | 2023-11-12 12:19 | P.PN ---
Subjective Progress Note Date: 11/12/23 Consult reason: syncope History of present illness: This is a 68-year-old female previously seen in the office by Dr. Jl Soto now established with a district plant superintendent at [facility] with past medical history of aortic stenosis scheduled for TAVR on 11/29. She also has a past medical history of diabetes, kidney stones with frequent urinary tract infections and stenting follows with a specialist at [facility], aly. We have been asked to evaluate the patient for syncope. Patient states that she was carrying groceries and and she had a syncopal episode the next thing she remembers she woke up in the ambulance. There was someone working at the house and found her. She has had 1 previous episode of syncope about a month ago. She states that she had recently started taking half of her Toprol pill and then was not feeling well so she increased it back to the full strength 2 days ago and was concerned that this may have contributed to the syncopal episode. Patient has been started on a heparin drip with concern for pulmonary embolism due to elevated D- dimer. Dr. Chandler discussed that patient is at high risk for due to the aortic stenosis and would recommend having TAVR sooner than is scheduled at the end of the month. He also recommended the patient complete treatment for urinary tract infection so that the UTI does not interfere with the scheduling of her TAVR. EKG sinus rhythm with occasional PACs Chest x-ray: No acute process Echocardiogram performed 11/11/2023 reveals normal LV size and systolic function with mild to moderate concentric LVH. Aortic valve is heavily calcified with severe stenosis and a mean gradient of nearly 40 mmHg. Mild to moderate mitral regurgitation and mitral annular calcification. Mild tricuspid regurgitation. No pericardial effusion. VQ scan reveals no evidence of pulmonary embolus. WBC 9.6, hemoglobin 10, platelet count 275. INR 1. D-dimer 5.72. Sodium 140, potassium 4.5, CO2 19, BUN 35 creatinine 1.85. Patient presented with creatinine of 2.4. Troponins negative x 3. proBNP 2230. Urinalysis leukoesterase large, RBCs 117, WBCs greater than 182, WBC clumps many. Home cardiac medications: Toprol XL 25 mg daily. 11/11 Patient has been in contact with her primary district plant superintendent and TAVR procedure has been rescheduled for Wednesday. Patient remains on antibiotics for UTI. She is in a sinus rhythm. Heart rate is in the 70s and 80s, blood pressure 103/65, pulse ox 98% on room air. Repeat blood work reveals BUN 34 creatinine 2.09. Physical examination: Gen: This is a 68-year-old female in no acute distress VS: reviewed HEENT: Head normocephalic. Ecchymosis right face. Pupils equal, round. Sclerae is anicteric. NECK: Supple. No JVD. LUNGS: Clear to auscultation. No wheezes or rhonchi. No intercostal retractions. HEART: Regular rate and rhythm. 4/6 systolic ejection murmur in the aortic area. ABDOMEN: Soft No tenderness. EXTREMITIES: No pedal edema. No calf tenderness. NEUROLOGICAL: Patient is awake, alert and oriented x3. Assessment: Syncope secondary to aortic stenosis Acute kidney injury, nephrology following Metabolic acidosis Urinary tract infection Severe aortic stenosis Bilateral hydronephrosis Chronic kidney disease stage IIIb Plan: Continue patient's home cardiac medications Continue treatment for UTI, acute kidney injury Continue Toprol XL at 12.5 mg daily, half her normal dose No driving Cardiology will follow on an as-needed basis. Please reconsult for any new concerns. Nurse practitioner note has been reviewed, I agree with documented findings and plan of care. Patient was seen and examined. Objective - Vital Signs Vital signs: Vital Signs Temp 98.1 F 11/12/23 07:28 Pulse 78 11/12/23 07:28 Resp 14 11/12/23 07:28 BP 103/65 11/12/23 07:28 Pulse Ox 98 11/12/23 07:28 FiO2 Intake & Output 11/11/23 11/12/23 11/12/23 18:59 06:59 18:59 Intake Total 962 780 240 Balance 962 780 240 Intake: IV 20 Invasive Line 2 20 Oral 942 780 240 Other: Voiding Method Toilet Toilet # Voids 1 2 - Labs CBC & Chem 7: 11/10/23 13:49 11/12/23 06:30 Labs: Abnormal Lab Results - Last 24 Hours (Table) 11/12/23 Range/Units 06:30 Chloride 112 H (98-107) mmol/L Carbon Dioxide 20 L (22-30) mmol/L BUN 34 H (7-17) mg/dL Creatinine 2.09 H (0.52-1.04) mg/dL Microbiology - Last 24 Hours (Table) 11/10/23 16:45 Blood Culture - Preliminary Blood 11/10/23 17:00 Blood Culture - Preliminary Blood
[2023-11-12] MEDS: SODIUM BICARBONATE TAB 650 MG TAB PO SCH (12:47)
--- NOTE | 2023-11-13 07:51 | P.GSCN ---
History of Present Illness Consult date: 11/12/23 Reason for Consult: Bilateral hydronephrosis Requesting physician: Douglas Voss History of present illness: The patient is a 68-year-old white female with a long history of recurrent urolithiasis. She has undergone multiple ureteroscopic and percutaneous procedures to remove calculi. She underwent a parathyroidectomy in August 2015 for hyperparathyroidism. She is now managed with indwelling ureteral stents, changed every 3 months. The stents were last changed [address] Gonzalez at [facility]. She is now admitted following a syncopal episode. She is known to have aortic valve stenosis and is scheduled to undergo a TAVR procedure on November 16, 2023 at [facility]. Review of Systems - Constitutional Denies chills, Denies fever - Genitourinary Genitourinary: Reports flank pain, Reports kidney stones, Denies dysuria, Denies hematuria Past Medical History Past Medical History: Diabetes Mellitus Additional Past Medical History / Comment(s): kidney stones,recent uti, recent sepsis r/t kidney stone-Sep 2014 in [place], surgery for hyperparathyroid in August 2015, ruptured back discs, Aortic valve disease History of Any Multi-Drug Resistant Organisms: None Reported Past Surgical History: Appendectomy, Section, Hysterectomy Additional Past Surgical History / Comment(s): x 3,lithotripsy,pcnl,cystoscopy,ureter stent placement & removal, parathroidectomy, gastric sleve Past Anesthesia/Blood Transfusion Reactions: Motion Sickness, Postoperative Nausea & Vomiting (PONV) Additional Past Anesthesia/Blood Transfusion Reaction / Comm: difficult intubation-has letter stating "recommends using fiberoptic glidoscope". Gets zofran and preventative Past Psychological History: No Psychological Hx Reported Smoking Status: Never smoker Past Alcohol Use History: None Reported Additional Past Alcohol Use History / Comment(s): smoked short time as a teenager Past Drug Use History: None Reported - Past Family History Father Additional Family Medical History / Comment(s): migraines, from a fall and brain hemorrhage at age 74 Mother Family Medical History: No Reported History Additional Family Medical History / Comment(s): mother still living at age 82 Medications and Allergies Home Medications Medication Instructions Recorded Confirmed Type ALPRAZolam [Xanax] 0.5 mg PO DAILY PRN 11/10/23 11/10/23 History Ciprofloxacin HCl [Cipro] 500 mg PO Q12HR 11/10/23 11/10/23 History Famotidine [Pepcid] 20 mg PO DAILY PRN 11/10/23 11/10/23 History Levothyroxine Sodium [Synthroid] 75 mcg PO DAILY 11/10/23 11/10/23 History Metoprolol Succinate (ER) [Toprol 25 mg PO DAILY 11/10/23 11/10/23 History Xl] Ondansetron [Zofran] 4 mg PO TID 11/10/23 11/10/23 History Semaglutide [Ozempic] 1 mg SQ MARIEE 11/10/23 11/10/23 History calcitrioL [Rocaltrol] 0.25 mcg PO DAILY 11/10/23 11/10/23 History oxyCODONE-APAP 10-325MG [Percocet 1 tab PO QID PRN 11/10/23 11/10/23 History 10-325 mg] Allergies Allergy/AdvReac Type Severity Reaction Status Date / Time allopurinol Allergy Rash/Hives Verified 11/10/23 14:31 cephalexin [From Keflex] Allergy Rash/Hives Verified 11/10/23 17:35 minocycline Allergy Anaphylaxis Verified 11/10/23 14:31 senna Allergy Rash/Hives Verified 11/10/23 14:31 fentanyl AdvReac Hallucinati Verified 11/10/23 14:31 ons Surgical - Exam Vital Signs Temp Pulse Resp BP Pulse Ox 97.5 F L 83 20 106/65 100 11/10/23 12:58 11/10/23 12:58 11/10/23 12:58 11/10/23 12:58 11/10/23 12:58 - General well developed, well nourished, no distress - Respiratory normal respiratory effort - Psychiatric oriented to time, oriented to person, oriented to place, speech is normal, memory intact Results - Labs 11/10/23 13:49 11/12/23 06:30 Abnormal Lab Results - Last 24 Hours (Table) 11/12/23 Range/Units 06:30 Chloride 112 H (98-107) mmol/L Carbon Dioxide 20 L (22-30) mmol/L BUN 34 H (7-17) mg/dL Creatinine 2.09 H (0.52-1.04) mg/dL Microbiology - Last 24 Hours (Table) 11/10/23 16:45 Blood Culture - Preliminary Blood 11/10/23 17:00 Blood Culture - Preliminary Blood Diabetes panel 11/12/23 Range/Units 06:30 Sodium 141 (137-145) mmol/L Potassium 4.7 (3.5-5.1) mmol/L Chloride 112 H (98-107) mmol/L Carbon Dioxide 20 L (22-30) mmol/L BUN 34 H (7-17) mg/dL Creatinine 2.09 H (0.52-1.04) mg/dL Glucose 96 (74-99) mg/dL Calcium 8.8 (8.4-10.2) mg/dL Calcium panel 11/12/23 Range/Units 06:30 Calcium 8.8 (8.4-10.2) mg/dL Pituitary panel 11/12/23 Range/Units 06:30 Sodium 141 (137-145) mmol/L Potassium 4.7 (3.5-5.1) mmol/L Chloride 112 H (98-107) mmol/L Carbon Dioxide 20 L (22-30) mmol/L BUN 34 H (7-17) mg/dL Creatinine 2.09 H (0.52-1.04) mg/dL Glucose 96 (74-99) mg/dL Calcium 8.8 (8.4-10.2) mg/dL Adrenal panel 11/12/23 Range/Units 06:30 Sodium 141 (137-145) mmol/L Potassium 4.7 (3.5-5.1) mmol/L Chloride 112 H (98-107) mmol/L Carbon Dioxide 20 L (22-30) mmol/L BUN 34 H (7-17) mg/dL Creatinine 2.09 H (0.52-1.04) mg/dL Glucose 96 (74-99) mg/dL Calcium 8.8 (8.4-10.2) mg/dL - Imaging US - kidney/bladder: report reviewed Assessment and Plan (1) Unspecified hydronephrosis Current Visit: Yes Status: Acute Code(s): N13.30 - UNSPECIFIED HYDRONEPHROSIS SNOMED Code(s): 34626415 Plan: The patient has chronic hydronephrosis, which is being managed with indwelling ureteral stents changed every 3 months to preserve renal function. It is not unusual in the setting for the hydronephrosis to persist despite properly positioned and functional stents. Urinalysis shows evidence of pyuria, but she has no symptoms of a UTI. Urine and blood cultures were sent, but there are no preliminary urine culture results available. Blood cultures are negative to date, and she is receiving Zosyn while awaiting cultures. I would not make any changes in her management at this time. Time with Patient: Greater than 30
[2023-11-13 09:19] LABS: Basophils # (A) 0.1 k/uL (0-0.2); Basophils % (A) 1 %; Eosinophils # (A) 0.2 k/uL (0-0.7); Eosinophils % (A) 2 %; HCT 38.3 % (34.0-46.0); HGB 11.4 gm/dL (11.4-16.0); Hypochromasia Marked; Lymphocytes # (A) 1.6 k/uL (1.0-4.8); Lymphocytes % (A) 17 %; MCH 26.8 pg (25.0-35.0); MCHC 29.9 g/dL (31.0-37.0); MCV 89.7 fL (80.0-100.0); Mean Platelet Volume 7.6; Monocytes # (A) 0.5 k/uL (0-1.0); Monocytes % (A) 5 %; Neutrophils # (A) 7.1 k/uL (1.3-7.7); Neutrophils % (A) 74 %; Platelet Count 364 k/uL (150-450); RBC 4.27 m/uL (3.80-5.40); RDW 15.4 % (11.5-15.5); WBC 9.6 k/uL (3.8-10.6)
[2023-11-13 09:46] LABS: ALT 19 U/L (4-34); AST 24 U/L (14-36); African American GFR (CKD) 29 (>60 ml/min/1.73 sqM); Albumin 3.9 g/dL (3.5-5.0); Alkaline Phosphatase 93 U/L (38-126); Anion Gap 11 mmol/L; Blood Urea Nitrogen 31 mg/dL (7-17); Carbon Dioxide 21 mmol/L (22-30); Chloride 110 mmol/L (98-107); Glucose 175 mg/dL (74-99); Non-African American GFR(CKD) 25 (>60 ml/min/1.73 sqM); Potassium 4.3 mmol/L (3.5-5.1); Sodium 142 mmol/L (137-145); Total Bilirubin 0.5 mg/dL (0.2-1.3); Total Protein 7.5 g/dL (6.3-8.2)
--- NOTE | 2023-11-13 09:52 | P.PN ---
Subjective Patient is seen in follow-up for acute kidney injury on chronic kidney disease. Renal function stable. Denies chest pain or shortness of breath. Has been voiding. Vital signs are stable. General: No acute distress. HEENT: Head exam is unremarkable. LUNGS: No audible rhonchi or wheezes. HEART: Rate and Rhythm are regular. ABDOMEN: Nontender. EXTREMITITES: No edema. Objective - Vital Signs Vital signs: Vital Signs Temp 98.2 F 11/12/23 23:48 Pulse 76 11/13/23 04:00 Resp 18 11/13/23 04:00 BP 118/70 11/13/23 04:00 Pulse Ox 93 L 11/13/23 04:00 FiO2 Intake & Output 11/12/23 11/13/23 11/13/23 18:59 06:59 18:59 Intake Total 598 340 240 Balance 598 340 240 Intake: Intake, IV Titration 100 Amount Piperacillin-Tazobactam 3 100 .375 gm In Sodium Chloride 0.9% 100 ml @ 25 mls/hr IVPB Q8H [facility] Rx#: [id number] Oral 598 240 240 Other: Voiding Method Incontinent # Voids 1 1 - Labs CBC & Chem 7: 11/13/23 08:13 11/13/23 08:13 Labs: Abnormal Lab Results - Last 24 Hours (Table) 11/13/23 11/13/23 Range/Units 08:13 08:13 MCHC 29.9 L (31.0-37.0) g/dL Chloride 110 H (98-107) mmol/L Carbon Dioxide 21 L (22-30) mmol/L BUN 31 H (7-17) mg/dL Creatinine 1.98 H (0.52-1.04) mg/dL Glucose 175 H (74-99) mg/dL Microbiology - Last 24 Hours (Table) 11/10/23 16:45 Blood Culture - Preliminary Blood 11/10/23 17:00 Blood Culture - Preliminary Blood Assessment and Plan Plan: Assessment: 1. Acute kidney injury secondary to vasomotor nephropathy from hemodynamic instability. Creatinine 2.4 admission and is stable at 1.98 today. Bilateral hydronephrosis noted on kidney ultrasound. 2. Chronic kidney disease stage IIIb with baseline creatinine 1.9-2.2 secondary to obstructive uropathy and diabetic kidney disease. 3. Hydronephrosis with bilateral ureteral stents which are exchanged every 3 to 4 months. Follows with urology out of [facility], Dr. Gonzalez. 4. Metabolic acidosis secondary to acute kidney injury and IV fluids. On oral bicarb. Better. 5. Syncopal episode. 6. Aortic stenosis. Mild to moderate mitral regurgitation also noted on echoca rdiogram. EF 55%. Scheduled for TAVR next week. 7. Chronic kidney disease mineral bone disease maintained on calcitriol. 8. UTI on antibiotics. Plan: Remains off IV fluids. Encouraged oral intake. Avoid nephrotoxins. Stable for discharge from nephrology standpoint. Follow-up outpatient 1 week postdischarge.
[2023-11-13 11:52] LABS: Glucose,Whole Blood 82 mg/dL (70-110)
[2023-11-13 11:59] VITALS: RESP 16
--- NOTE | 2023-11-13 12:26 | P.PN ---
Subjective Progress Note Date: 11/13/23 Principal diagnosis: Hydronephrosis, possible UTI Patient denies dysuria, hematuria, and other urinary complaints. She remains afebrile with stable vital signs. Objective - Vital Signs Vital signs: Vital Signs Temp 98.2 F 11/12/23 23:48 Pulse 76 11/13/23 04:00 Resp 18 11/13/23 04:00 BP 118/70 11/13/23 04:00 Pulse Ox 93 L 11/13/23 04:00 FiO2 Intake & Output 11/12/23 11/13/23 11/13/23 18:59 06:59 18:59 Intake Total 598 340 Balance 598 340 Intake: Intake, IV Titration 100 Amount Piperacillin-Tazobactam 3 100 .375 gm In Sodium Chloride 0.9% 100 ml @ 25 mls/hr IVPB Q8H [facility] Rx#: [id number] Oral 598 240 Other: Voiding Method Incontinent # Voids 1 1 - Constitutional General appearance: Present: average body habitus, no acute distress - Psychiatric Psychiatric: Present: A&O x's 3 - Labs CBC & Chem 7: 11/13/23 08:13 11/13/23 08:13 Labs: Microbiology - Last 24 Hours (Table) 11/10/23 16:45 Blood Culture - Preliminary Blood 11/10/23 17:00 Blood Culture - Preliminary Blood Assessment and Plan (1) Unspecified hydronephrosis Current Visit: Yes Status: Acute Code(s): N13.30 - UNSPECIFIED HYDRONEPHROSIS SNOMED Code(s): 38043472 Plan: The patient has chronic hydronephrosis, which is being managed with indwelling ureteral stents changed every 3 months to preserve renal function. It is not unusual in the setting for the hydronephrosis to persist despite properly positioned and functional stents. Urinalysis shows evidence of pyuria, but she has no symptoms of a UTI. The urine culture is negative, and blood cultures show no growth at 48 hours. She is urologically stable for discharge. Given that she is undergoing a TAVR procedure on Wednesday, and that urinalysis did show pyuria, it would be reasonable to send her home on several days of a broad- spectrum antibiotic empirically. She will follow-up with her urologist, Dr. Gonzalez, and see me as needed in the future. Please notify me if I can be of any further assistance.
[2023-11-13] MEDS: AMOXIC-POT CLAV 500-125 MG 1 EACH TAB PO SCH (14:26)
--- NOTE | 2023-11-13 15:05 | US ---
EXAMINATION TYPE: US venous doppler duplex LE BI DATE OF EXAM: 11/13/2023 2:00 PM COMPARISON: NONE CLINICAL INDICATION: Female, 68 years old with history of elevated D-Dimer; elevated d-dimer, no symp toms, no h/o dvt SIDE PERFORMED: Bilateral TECHNIQUE: The lower extremity deep venous system is examined utilizing real time linear array sonog jodie with graded compression, doppler sonography and color-flow sonography. VESSELS IMAGED: Common Femoral Vein Deep Femoral Vein Greater Saphenous Vein * Femoral Vein Popliteal Vein Small Saphenous Vein * Proximal Calf Veins (* superficial vessels) Right Leg: Negative for DVT Left Leg: Negative for DVT IMPRESSION: Grayscale, color doppler, spectral doppler imaging performed of the deep veins of the lo wer extremities. There is normal flow, compressibility, vascular waveforms.
[2023-11-13 15:46] VITALS: BP 108/64; PULSE 79; TEMP 98.1
--- NOTE | 2023-11-14 01:25 | P.DS ---
Providers Date of admission: 11/10/23 15:29 Attending physician: Douglas Voss Consults: 11/10/23 15:29 Consult Physician Urgent Consulting Provider: [facility] Consult Reason/Comments: Syncope Do you want consulting provider notified?: Yes Consult Physician Urgent Consulting Provider: Nick Ayala Consult Reason/Comments: Acute renal failure Do you want consulting provider notified?: Yes 11/12/23 09:20 Consult Physician Urgent Consulting Provider: Jose Chairez Consult Reason/Comments: bilateral hydropnephrosis Do you want consulting provider notified?: Yes Primary care physician: Uyen Ramón [facility] Course: Diagnoses: episode of syncope, secondary to severe aortic stenosis. Patient is planned to have surgical repair at [facility] this coming Wednesday 11/15 Underlying history of valvular heart disease with aortic stenosis elevated d-dimer with negative CTA for PE and ultrasound for DVT Symptomatic urinary tract infection, with suprapubic pain and tenderness. Improved symptoms and patient will be discharged on short course of Augmentin Acute kidney injury, stable and cleared by nephrology for discharge Metabolic acidosis underlying history of kidney stones History of degenerative disc disease with herniated disc Hospital course: Sallie Flynn, is a 68-year-old female who presented to [facility] emergency room after having an episode of syncope. With cardiology consult and patient has severe aortic stenosis. Patient originally planned to have surgical repair of her aortic stenosis by the end of this month, because of the syncope likely patient recommended to move the appointment sooner. Today both the patient and with daughter at bedside confirmed to me they have already contacted her mash tub cooker operator at [facility] rescheduled hold for surgery this coming Wednesday 11/15. However they want her to go tomorrow to [facility] to do more So she can follow-up with him on surgery date. Patient was adamant to leave today as well the family including the and daughter. Patient understands the risk of recurrent syncope and/or prior to surgery. However keeping her in the hospital here at [facility] that would delay her surgery and exposure to her to higher risk of the. Therefore we felt the benefits of discharge more than the risks. Patient also found to have bilateral hydronephrosis, neurologist evaluated the patient and felt this is chronic and cleared for discharge Also her kidney number was elevated on admission 1.9 patient evaluated by gin clerk, creatinine remained stable Patient was cleared for discharge by all consultants including gin clerk urologist and mash tub cooker operator. Currently stable actually sign of the case yesterday Patient herself was seen walking in her room normally, gait normal, no dizziness, no other complaint, no chest pain or dyspnea. Patient request to be discharged and stating that she feels she is back to her normal self and she intends to follow-up with her mash tub cooker operator for surgical repair of 11/15 as above Patient denies any other new complaints Problems and management plan were discussed with the patient and he verbalized understanding and acceptance Patient was found stable and can be discharged home in guarded prognosis however he needs follow-up as an outpatient. Patient was instructed to follow up with PCP Dr. Voss within one week and patient agrees Patient was instructed to follow-up with her appointment for aortic valve repair on this coming Wednesday 11/15 with her mash tub cooker operator and she agrees. She is already in contact with them and she is going tomorrow to the office to do blood work for this purpose Patient also was instructed to follow-up with Dr. Shipley in 1 to 2 weeks after discharge and she agrees Physical exam Gen: patient is a AAOx3, no distress CVS: S1-S2, RRR, no murmur Lungs: B/L CTA, no wheezing Abdomen: soft, no distention, no tenderness, positive bowel sounds Extremity: no leg edema or induration Time spent more than 35 minutes Plan - Discharge Summary Discharge Rx Participant: No New Discharge Prescriptions: New Amoxic-Pot Clav 875-125Mg [Augmentin 875-125] 1 tab PO Q12HR 5 Days #10 tab Sodium Bicarbonate Tab 650 mg PO DAILY 30 Days #60 tab Metoprolol Succinate (ER) [Toprol XL] 12.5 mg PO DAILY 7 Days #7 tab Continue calcitrioL [Rocaltrol] 0.25 mcg PO DAILY Levothyroxine Sodium [Synthroid] 75 mcg PO DAILY Famotidine [Pepcid] 20 mg PO DAILY PRN PRN Reason: Gi Upset oxyCODONE-APAP 10-325MG [Percocet 10-325 mg] 1 tab PO QID PRN PRN Reason: Pain Ondansetron [Zofran] 4 mg PO TID ALPRAZolam [Xanax] 0.5 mg PO DAILY PRN PRN Reason: Anxiety Semaglutide [Ozempic] 1 mg SQ MARIEE Discontinued Metoprolol Succinate (ER) [Toprol Xl] 25 mg PO DAILY Ciprofloxacin HCl [Cipro] 500 mg PO Q12HR Discharge Medication List ALPRAZolam [Xanax] 0.5 mg PO DAILY PRN 11/10/23 [History] Famotidine [Pepcid] 20 mg PO DAILY PRN 11/10/23 [History] Levothyroxine Sodium [Synthroid] 75 mcg PO DAILY 11/10/23 [History] Ondansetron [Zofran] 4 mg PO TID 11/10/23 [History] Semaglutide [Ozempic] 1 mg SQ MARIEE 11/10/23 [History] calcitrioL [Rocaltrol] 0.25 mcg PO DAILY 11/10/23 [History] oxyCODONE-APAP 10-325MG [Percocet 10-325 mg] 1 tab PO QID PRN 11/10/23 [History] Amoxic-Pot Clav 875-125Mg [Augmentin 875-125] 1 tab PO Q12HR 5 Days #10 tab 11/13/23 [Rx] Metoprolol Succinate (ER) [Toprol XL] 12.5 mg PO DAILY 7 Days #7 tab 11/13/23 [Rx] Sodium Bicarbonate Tab 650 mg PO DAILY 30 Days #60 tab 11/13/23 [Rx] Follow up Appointment(s)/Referral(s): Dilshad Chandler MD [STAFF PHYSICIAN] - 3 Days Kev Guerrier MD [STAFF PHYSICIAN] - 1 Week Miriam Melgar MD [REFERRING] - 1-2 days Douglas Voss MD [STAFF PHYSICIAN] - 1 Week Nick Ayala DO [STAFF PHYSICIAN] - 1 Week Patient Instructions/Handouts: Urinary Tract Infection in Women (DC), Syncope (DC) Activity/Diet/Wound Care/Special Instructions: heat healthy diet Activity is restricted till you see your doctor We recommend you follow-up with your mash tub cooker operator and surgeon Dr. Melgar this coming Wednesday for surgical correction of your aortic stenosis, otherwise contact your doctor mash tub cooker operator or Dr. Voss as soon as possible We recommend to follow-up with your blood work and surgical plan with Damari Truong. Discharge Disposition: HOME SELF-CARE
[2023-11-14] MEDS ORDERED: NON FORMULARY DRUG (Semaglutide [Ozempic] 2 MG/0.75 ML Pen.Injctr) SQ SCH (09:00)
== END 2023-11-13 16:58 | disposition home or self-care (01) | DRG 306 ==
LOC: EC 12:50 → 3SCARD 15:29
PROVIDERS: ADMIT Internal Medicine; ATTEND Internal Medicine
DX: I08.0 Rheumatic disorders of both mitral and aortic valves (principal); N17.0 Acute kidney failure with tubular necrosis; N13.6 Pyonephrosis; E87.20 Acidosis, unspecified; N18.32 Chronic kidney disease, stage 3b; E11.22 Type 2 diabetes mellitus with diabetic chronic kidney disease; I12.9 Hypertensive chronic kidney disease with stage 1 through stage 4 chronic kidney disease, or unspecified chronic kidney disease; E03.9 Hypothyroidism, unspecified; E78.5 Hyperlipidemia, unspecified; M89.8X9 Other specified disorders of bone, unspecified site; R79.1 Abnormal coagulation profile; Z96.0 Presence of urogenital implants; Z87.440 Personal history of urinary (tract) infections; Z79.890 Hormone replacement therapy; Z79.899 Other long term (current) drug therapy; Z79.85 Long-term (current) use of injectable non-insulin antidiabetic drugs; Z79.891 Long term (current) use of opiate analgesic; Z88.8 Allergy status to other drugs, medicaments and biological substances; Z88.1 Allergy status to other antibiotic agents; Z88.5 Allergy status to narcotic agent
CPT/HCPCS: 36415; 71046; 76770; 78582; 80048; 80053; 81001; 83735; 83880; 84484; 85025; 85379; 85610; 85730; 87040; 87086; 93005; 93306; 93970; 96365; 96375; 99291